=== PATIENT | male | born 1955 ===

== ENCOUNTER 2023-11-01 06:15 | Day surgery (SDC) | payer OTHER, SELFPAY ==
[2023-10-16 07:57] VITALS: BMI 26.3
[2023-11-01] VITALS (9 sets, daily range): BP systolic 115–145; BP diastolic 61–82; BMI 26.3
[2023-11-01] MEDS: TYLENOL 1000 MG PO (07:20)
[2023-11-01] MEDS: NORMOSOL-R 1000 IV (07:25)
--- NOTE | 2023-11-01 09:13 | W.SUR.PREOP ---
Pre-Operative Surgical Note
-
I have examined this patient prior to the performance of the scheduled procedure.
The patient's condition is unchanged from the time of the current History and
Physical and the patient is able to undergo the scheduled procedure.
--- NOTE | 2023-11-01 09:14 | W.IMMPOSTOP ---
Surgical Immed Post Op Note
-
Primary Surgeon: Adrien Hammer MD
Assisting Surgeon: None
Pre-op Diagnosis: Right inguinal hernia, umbilical hernia
Post-op Diagnosis: Same
Procedure Performed:
1. Laparoscopic right inguinal hernia repair with mesh.
2. Open umbilical hernia repair with mesh.
Anesthesia Type: General
Specimen / Cultures: None
Estimated Blood Loss: 3 cc
Complications: None
Operative Findings: Indirect right inguinal hernia. No direct or femoral component. No cord lipoma. Floor reinforced with a Bard 3D max large, mid weight uncoated polypropylene mesh. 1.5 cm umbilical defect reinforced with a 5 cm round uncoated
Bard soft macroporous polypropylene mesh in a preperitoneal/underlay position.
POST OP PLAN:
Will discharge home after voiding, with an ice pack.
--- NOTE | 2023-11-01 09:16 | OR.RPT ---
Operative Report
Operative Report
Patient Name: Todd Parker
: 1955
Date of Operation: 11/01/2023
Preoperative Diagnosis: Right inguinal hernia, umbilical hernia
Postoperative Diagnosis: Same
Procedure(s):
1. Laparoscopic Inguinal Hernia Repair, right (TEP approach)
2. Open umbilical hernia repair with mesh
Surgeon(s):
Dr. Hammer
Lamination Assembler(s):
BRANDON Sarabia
Anesthesia: General
Estimated Blood Loss: 3 cc
Urine Output: None
Drains/Lines/Implants: Large 3D Max Bard mid weight mesh
Specimens: None
Indication for surgery: The patient has a history of groin pain and noted on exam to have a right inguinal and umbilical hernia(s). Following review of therapeutic options they has elected to undergo a minimally invasive repair of his inguinal
hernia as well as an open repair of his umbilical hernia.
Operative Findings: Indirect right inguinal hernia. No direct or femoral component. No cord lipoma. Floor reinforced with a Bard 3D max large, mid weight uncoated polypropylene mesh. 1.5 cm umbilical defect reinforced with a 5 cm round uncoated
Bard soft macroporous polypropylene mesh in a preperitoneal/underlay position.
Details of the operation:
After inducing general anesthesia and endotracheal intubation, the patient was prepped and draped in the supine position with both arms tucked. After infiltration with 0.25% Marcaine, a right periumbilical incision was made. Dissection was carried
down to the anterior sheath which was incised and the rectus muscle retracted laterally. An origin balloon was then inserted in through the posterior portion of the rectus into the preperitoneal space. This was insufflated under direct vision and
blunt dissection was therefore achieved in the preperitoneal space. The balloon was then removed and a 12mm Balloon trocar was placed. Two 5-mm ports were also placed in the midline below the camera port. Blunt dissection was used to dissect the
myopectineal orifice with care not to injure the epigastric vessels, gonadals or spermatic cord. Blunt dissection was used to identify the direct, indirect, and femoral spaces.
Right side:
The cord was inspected and an indirect hernia sac was noted and reduced.
There was no cord lipoma.
There was no weakness in the direct space floor.
There was no femoral herniation.
A large 3D max mid weight mesh was then placed into position and positioned into the appropriate area to cover all 3 defects. No tacks were used.
The area was then completely infiltrated with 20 cc of Marcaine without epinephrine (0.25%). The insufflation was slowly decreased and the mesh was assured to be in proper position with desufflation. The Christy trocar site was also closed with 0
PDS suture in a [id number] fashion. We then turned our attention to the umbilical defect. The periumbilical incision was extended towards the left side. The umbilical hernia defect was dissected circumferentially and isolated. This was
then dissected off of the overlying umbilical stalk. The edges of the fascia were identified and the hernia defect measured roughly 1.5 cm. We then developed the preperitoneal space roughly 2.5 cm in each direction to accommodate a 5 x 5 cm
uncoated polypropylene Bard soft mesh. The center of this mesh was marked with a Vicryl stitch and placed into the preperitoneal space taking care to ensure that the mesh was flat and not rolled up. We then closed the umbilical defect with a
running 0 PDS suture taking care to take small bites of the underlying mesh to help with fixation. The umbilical stalk was then tacked down to the fascia with a 3-0 Vicryl. This umbilical skin was then closed with interrupted 3-0 Vicryl. The skin
sites were all then closed with running subcuticular 4-0 Monocryl suture followed by dermabond. Inspection of the scrotum revealed both testes to be in position. The patient returned to the recovery room in stable condition. Sponge and instrument
counts were correct. No specimen sent to pathology
I was the attending physician and performed the procedure with assistance from the COURT[employer]Y CAR DRIVER above. I was present for all portions of the case
Adrien Hammer MD
== END 2023-11-01 11:45 | disposition home or self-care (01) ==
LOC: SDS 06:15
PROVIDERS: ATTENDING PHYSICIAN Surgery; FAMILY PHYSICIAN Family Medicine
DX: K40.90 Unilateral inguinal hernia, without obstruction or gangrene, not specified as recurrent (principal); K42.9 Umbilical hernia without obstruction or gangrene
CPT/HCPCS: 49650; 49591; 36415; 93005

== ENCOUNTER → 2023-11-23 09:20 | Outpatient (REF) | payer OTHER, SELFPAY | LOC: HWRAD 09:20 | PROVIDERS: ATTENDING PHYSICIAN Surgery; FAMILY PHYSICIAN Family Medicine; REFERRING PHYSICIAN Urology | DX: K40.90 Unilateral inguinal hernia, without obstruction or gangrene, not specified as recurrent (principal) | CPT/HCPCS: 74177; Q9967 ==

== ENCOUNTER → 2024-02-21 09:41 | Outpatient (REF) | payer OTHER, SELFPAY | LOC: HWRAD 09:41 | PROVIDERS: ATTENDING PHYSICIAN Surgery; FAMILY PHYSICIAN Family Medicine; REFERRING PHYSICIAN Urology | DX: K40.90 Unilateral inguinal hernia, without obstruction or gangrene, not specified as recurrent (principal) | CPT/HCPCS: 74177; Q9967 ==